=== PATIENT | female | born 1985 | race African-American/Black ===

== ENCOUNTER 2019-01-30 23:45 | Emergency (ER) | payer OTHER ==
[~2019-01-30] VITALS: Ht 160 cm; Wt 70.3 kg
[2019-01-31 00:41] VITALS: BP 128/64; TEMP 99.5
== END 2019-01-31 00:42 | disposition home or self-care (01) ==
LOC: ED 23:45
DX: K08.89 Other specified disorders of teeth and supporting structures (principal)
CPT/HCPCS: 96372; 99283; J0696; J1885